=== PATIENT | male | born 2000 | race Caucasian/White ===

== ENCOUNTER 2021-05-26 20:58 | Emergency (ER) | payer OTHER ==
[~2021-05-26] VITALS: Ht 182.9 cm; Wt 79.6 kg
[2021-05-26 20:59] VITALS: BP 129/80
[2021-05-27] MEDS ORDERED: ONDANSETRON 4MG/2ML VIAL IV ONE (00:20)
[2021-05-27] MEDS ORDERED: NS 1,000 ML IV ONE (00:20)
[2021-05-27 00:30] LABS: BASO % 0.3 % (0.0-1.0); EOS % 0.4 % (0.0-3.0); HEMATOCRIT 45.7 % (42.0-52.0); HEMOGLOBIN 15.4 g/dl (13.5-17.5); LYMPH # 0.5 10^3/uL (1.5-5.0); LYMPH % 4.5 % (24.0-44.0); MEAN CORPUSCULAR HEMOGLOBIN 30.5 pg (27.0-33.0); MEAN CORPUSCULAR HGB CONC 33.7 g/dl (32.0-36.5); MEAN CORPUSCULAR VOLUME 90.5 fl (80.0-96.0); MONO # 0.6 10^3/uL (0.0-0.8); MONO % 5.3 % (2.0-8.0); NEUTROPHILS # 9.8 10^3/uL (1.5-8.5); NEUTROPHILS % 89.3 % (36.0-66.0); PLATELET COUNT, AUTOMATED 225 10^3/uL (150-450); RED BLOOD COUNT 5.05 10^6/uL (4.30-6.10)
[2021-05-27 01:05] LABS: BLOOD UREA NITROGEN 20 MG/DL (7-18); CALCIUM LEVEL 8.9 MG/DL (8.5-10.1); CARBON DIOXIDE LEVEL 26 MEQ/L (21-32); CHLORIDE LEVEL 105 MEQ/L (98-107); CREATININE FOR GFR 1.18 MG/DL (0.70-1.30); GLOMERULAR FILTRATION RATE > 60.0 (>60); GLUCOSE, FASTING 109 MG/DL (70-100); POTASSIUM SERUM 4.4 MEQ/L (3.5-5.1); SODIUM LEVEL 140 MEQ/L (136-145)
[2021-05-27] MEDS ORDERED: ONDA4TAB6 PO (01:19)
== END 2021-05-27 01:35 | disposition home or self-care (01) ==
LOC: M ED 20:58
DX: E86.0 Dehydration (principal)
CPT/HCPCS: 80048; 85025; 96361; 96374; 99283; J2405

== ENCOUNTER 2022-09-01 21:43 | Emergency (ER) | payer OTHER ==
[~2022-09-01] VITALS: Ht 182.9 cm; Wt 84.6 kg
[~2022-09-01 21:43] MED LIST: ONDA4TAB6 PO
[2022-09-01 23:52] LABS: GC DNA AMPLIFICATION NEGATIVE (NEGATIVE)
[2022-09-02 00:43] VITALS: BP 134/63
== END 2022-09-02 02:55 | disposition home or self-care (01) ==
LOC: M ED 21:43
DX: F41.8 Other specified anxiety disorders (principal)

== ENCOUNTER → 2022-10-04 | Outpatient (CLI) | payer OTHER ==
[2022-10-04 17:20] LABS: HIV 1&2 SCREEN NEGATIVE (NEGATIVE)
[2022-10-04 23:30] LABS: GC DNA AMPLIFICATION NEGATIVE (NEGATIVE)
[2022-10-07 06:09] LABS: HSV TYPE I IgG SPECIFIC 3.72 index (0.00-0.90); HSV TYPE II IgG SPECIFIC <0.91 index (0.00-0.90)
== END ==
LOC: M LAB 15:49
PROVIDERS: ATTEND Student in an Organized Health Care Education/Training Program
DX: R30.0 Dysuria (principal); Z11.3 Encounter for screening for infections with a predominantly sexual mode of transmission

== ENCOUNTER 2022-11-27 11:53 | Emergency (ER) | payer OTHER ==
[~2022-11-27] VITALS: Ht 182.9 cm; Wt 90.6 kg
[2022-11-27] MEDS ORDERED: IBUP1TAB7 PO (14:06)
[2022-11-27] MEDS ORDERED: NS 1,000 ML IV ONE (15:00)
[2022-11-27] MEDS ORDERED: METOCLOPRAMIDE INJ 10MG/2ML VIAL IV ONE (15:00)
[2022-11-27] MEDS ORDERED: dexAMETHasone 20MG/5ML VIAL IV ONE (15:00)
[2022-11-27] MEDS ORDERED: ACETAMINOPHEN *IV* 1,000 MG in IV 1 EA IV ONE (15:00)
[2022-11-27] MEDS ORDERED: ISOVUE-370 76% 100ML VIAL As Ordered ONE (15:21)
[2022-11-27 15:23] LABS: BASO # 0.1 10^3/uL (0.0-0.2); BASO % 0.9 % (0.0-1.0); EOS # 0.4 10^3/uL (0.0-0.5); EOS % 4.4 % (0.0-3.0); HEMATOCRIT 46.2 % (42.0-52.0); HEMOGLOBIN 15.8 g/dl (13.5-17.5); LYMPH # 2.2 10^3/uL (1.5-5.0); LYMPH % 24.3 % (24.0-44.0); MEAN CORPUSCULAR HGB CONC 34.2 g/dl (32.0-36.5); MEAN CORPUSCULAR VOLUME 90.8 fl (80.0-96.0); MONO # 0.5 10^3/uL (0.0-0.8); MONO % 5.9 % (2.0-8.0); NEUTROPHILS # 5.9 10^3/uL (1.5-8.5); NEUTROPHILS % 64.2 % (36.0-66.0); PLATELET COUNT, AUTOMATED 261 10^3/uL (150-450); RED BLOOD COUNT 5.09 10^6/uL (4.30-6.10); WHITE BLOOD COUNT 9.1 10^3/uL (4.0-10.0)
[2022-11-27 15:49] LABS: C REACTIVE PROTEIN QUANTITATIV < 0.40 MG/DL (<1.0); MAGNESIUM LEVEL 2.2 MG/DL (1.8-2.4)
[2022-11-27 15:59] LABS: MONO REFLEX EBV COMP NEGATIVE (NEGATIVE)
[2022-11-27 16:00] LABS: ERYTHROCYTE SEDIMENTATION RATE 1 mm/hr (0-15)
[2022-11-27] MEDS ORDERED: KETOROLAC 30 MG/ML 1ML VIAL IV ONE (16:10)
[2022-11-27 17:04] VITALS: BP 125/71; TEMP 97.9; O2SAT 99
[2022-11-29 17:09] LABS: EBV VIRAL CAPSID AG IgG <18.0 U/mL (0.0-17.9); EBV VIRAL CAPSID AG IgM <36.0 U/mL (0.0-35.9)
== END 2022-11-27 17:13 | disposition home or self-care (01) ==
LOC: M ED 11:53
DX: R51.9 Headache, unspecified (principal); M54.2 Cervicalgia
CPT/HCPCS: 36415; 70450; 70496; 70498; 80047; 83735; 85025; 85652; 86140; 86308; 86618; 86664; 86665; 96365; 96375; 99284; J0131; J1100; J1885; J2765; Q9967